=== PATIENT | male | born 1995 | race Caucasian/White ===

== ENCOUNTER 2019-09-13 13:16 | Emergency (ER) | payer OTHER ==
[~2019-09-13] VITALS: Ht 182.9 cm; Wt 74.8 kg
[2019-09-13 13:21] VITALS: Ht 182.9 cm; Wt 74.8 kg
[2019-09-13 15:54] VITALS: BP 144/78
== END 2019-09-13 14:10 | disposition home or self-care (01) ==
LOC: ED 13:16
DX: S92.352A Displaced fracture of fifth metatarsal bone, left foot, initial encounter for closed fracture (principal); V00.131A Fall from skateboard, initial encounter; Y93.89 Activity, other specified; Y92.89 Other specified places as the place of occurrence of the external cause; Y99.8 Other external cause status